=== PATIENT | female | born 1970 | race Caucasian/White ===

== ENCOUNTER → 2016-12-02 | Outpatient (CLI) | payer OTHER | LOC: CT 08:39 | DX: R07.81 Pleurodynia (principal); S22.42XD Multiple fractures of ribs, left side, subsequent encounter for fracture with routine healing | CPT/HCPCS: 71270; J7050; Q9962 ==

== ENCOUNTER → 2020-09-28 | Outpatient (CLI) | payer OTHER | LOC: KOH-I 10:00 | DX: M25.512 Pain in left shoulder (principal); M65.9 Synovitis and tenosynovitis, unspecified | CPT/HCPCS: 73221 ==

== ENCOUNTER → 2021-06-11 | Outpatient (CLI) | payer OTHER | LOC: EXRD 15:31 | DX: E04.1 Nontoxic single thyroid nodule (principal) | CPT/HCPCS: 76536 ==

== ENCOUNTER → 2021-11-08 | Outpatient (CLI) | payer OTHER | LOC: EXRD 13:14 | DX: E04.2 Nontoxic multinodular goiter (principal) | CPT/HCPCS: 76536 ==